=== PATIENT | female | born 2000 | race African-American/Black ===

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

== ENCOUNTER 2021-02-27 02:45 | Emergency (ER) | payer SELFPAY | END 2021-02-27 03:14 | disposition home or self-care (01) | LOC: ERS 02:45 | DX: L30.9 Dermatitis, unspecified (principal); L98.499 Non-pressure chronic ulcer of skin of other sites with unspecified severity | CPT/HCPCS: 99282 ==